=== PATIENT | male | born 1945 | race Caucasian/White ===

== ENCOUNTER 2021-07-23 08:37 | Day surgery (SDC) | payer OTHER ==
[~2021-07-23] VITALS: Ht 177.8 cm; Wt 77.2 kg
[~2021-07-23 08:37] MED LIST: ASPI-1264 PO; ATOR40TA PO; CHOL400C8 PO; HYDR12.5 PO; HYDR500C18 PO; IRON18TA PO; LEVO75TA PO; MELO-100 PO; OMEP20CA16 PO
[2021-07-23] MEDS ORDERED: normal saline 1000ml 1,000 ML IV SCH (09:00)
[2021-07-23] MEDS ORDERED: LISI10TA27 PO (09:44)
[2021-07-23] MEDS ORDERED: LEVO100T9 PO (09:44)
[2021-07-23] MEDS ORDERED: ATOR10TA87 PO (09:44)
== END 2021-07-23 09:55 | disposition home or self-care (01) ==
LOC: SSTAY O 08:37
PROVIDERS: ATTEND Radiology Vascular & Interventional Radiology
DX: D38.1 Neoplasm of uncertain behavior of trachea, bronchus and lung (principal); Z53.8 Procedure and treatment not carried out for other reasons; U07.1 COVID-19; Z20.822 Contact with and (suspected) exposure to COVID-19
CPT/HCPCS: 87635; C9803

== ENCOUNTER 2021-08-17 13:49 | Emergency (ER) | payer OTHER, MEDICARE, BC ==
[~2021-08-17] VITALS: Ht 177.8 cm; Wt 77.3 kg
[~2021-08-17 13:49] MED LIST changes: +ATOR10TA87 PO; -ATOR40TA PO; -CHOL400C8 PO; -HYDR12.5 PO; -IRON18TA PO; +LEVO100T9 PO; -LEVO75TA PO; +LISI10TA27 PO; -MELO-100 PO
[2021-08-17 15:30] LABS: BASOPHILS # (AUTO) 0.1 X10'3 (0-0.2); BASOPHILS % (AUTO) 1.3 % (0-1); EOSINOPHILS # (AUTO) 0.1 X10'3 (0-0.9); EOSINOPHILS % (AUTO) 1.3 % (0-6); HEMATOCRIT 34.2 % (42.0-52.0); HEMOGLOBIN 11.5 g/dl (14.0-17.9); LYMPHOCYTES % (AUTO) 14.4 % (21-51); MEAN CORPUSCULAR HEMOGLOBIN 35.4 PG (27.0-31.0); MEAN CORPUSCULAR HGB CONC 33.7 g/dL (33.0-36.5); MEAN CORPUSCULAR VOLUME 105.1 FL (78-98); MONOCYTES # (AUTO) 0.6 X10'3 (0-0.9); NEUTROPHILS # (AUTO) 5.5 X10'3 (1.8-7.7); PLATELET COUNT 465 X10'3 (140-440); RED BLOOD COUNT 3.25 X10'6 (4.70-6.10); RED CELL DISTRIBUTION WIDTH 17.7 % (11.5-14.5); WHITE BLOOD COUNT 7.3 X10'3 (4.5-11.0)
[2021-08-17 15:32] LABS: APTT 28 SECONDS (22-32)
[2021-08-17 15:36] LABS: ALANINE AMINOTRANSFERASE 22 U/L (12-78); ALBUMIN 3.1 G/DL (3.4-5.0); ALBUMIN/GLOBULIN RATIO 0.9 (1.1-1.5); ALKALINE PHOSPHATASE 78 IU/L (46-116); ANION GAP 10 (8-16); ASPARTATE AMINO TRANSFERASE 16 U/L (10-37); BILIRUBIN,TOTAL 0.3 MG/DL (0.1-1.0); BLOOD UREA NITROGEN 18 MG/DL (7-18); BUN/CREATININE RATIO 21.7 (5.4-32.0); CALCIUM 8.2 MG/DL (8.5-10.1); CHLORIDE 105 MMOL/L (99-107); CREATININE 0.83 MG/DL (0.60-1.10); GLUCOSE 117 MG/DL (70-104); POTASSIUM 4.4 MMOL/L (3.5-5.1); SODIUM 139 MMOL/L (135-145); TOTAL CARBON DIOXIDE 24.5 MMOL/L (24-32); TOTAL PROTEIN 6.7 G/DL (6.4-8.2); eGFR 90 ML/MIN
[2021-08-17] MEDS ORDERED: iohexol 350MG/ML 100ml bottle IV ONE (16:35)
[2021-08-17] MEDS ORDERED: iohexol 350 MG/ML 50ML vial IV ONE (16:35)
--- NOTE | 2021-08-17 16:48 | NUR ---
ultrasound at bedside.
--- NOTE | 2021-08-17 19:36 | NUR ---
Pt ambulatory to bathroom. Pt pink, alert, steady gait, no acute/resp distress.
[2021-08-17 20:32] VITALS: BP 149/98
== END 2021-08-17 20:40 | disposition home or self-care (01) ==
LOC: ER 13:50
DX: I99.8 Other disorder of circulatory system (principal); M79.674 Pain in right toe(s); Z98.890 Other specified postprocedural states; Z72.89 Other problems related to lifestyle; Z79.82 Long term (current) use of aspirin; Z79.899 Other long term (current) drug therapy
CPT/HCPCS: 36415; 75635; 80053; 85025; 85610; 85730; 93922; 93926; 99285; Q9967

== ENCOUNTER 2021-10-05 14:05 | Emergency (ER) | payer OTHER, MEDICARE, BC ==
[~2021-10-05] VITALS: Ht 177.8 cm; Wt 77.0 kg
[2021-10-05 15:19] LABS: COLOR,URINE RED (Yellow)
[2021-10-05 15:21] LABS: CLARITY,URINE CLOUDY (Clear); UA COLLECTION TYPE CLN CATCH MIDSTREAM
[2021-10-05 15:25] LABS: BACTERIA,URINE 1+ /HPF (Neg); MUCUS STRANDS NONE SEEN /LPF (Neg); RBC,URINE TNTC /HPF (0-2); SQUAMOUS EPITHELIAL CELL,UR FEW /LPF (FEW)
--- NOTE | 2021-10-05 16:15 | NUR ---
pt is resting quietly on [place], being evaluated by Dr Maldonado
[2021-10-05] MEDS ORDERED: normal saline 1000ML IV soln IVB ONE (16:20)
[2021-10-05 16:53] LABS: RED CELL DISTRIBUTION WIDTH 16.6 % (11.5-14.5)
[2021-10-05 16:55] LABS: BASOPHILS # (AUTO) 0.2 X10'3 (0-0.2); EOSINOPHILS # (AUTO) 0.2 X10'3 (0-0.9); EOSINOPHILS % (AUTO) 2.6 % (0-6); HEMATOCRIT 34.2 % (42.0-52.0); HEMOGLOBIN 11.4 g/dl (14.0-17.9); LYMPHOCYTES # (AUTO) 1.4 X10'3 (1.1-4.8); LYMPHOCYTES % (AUTO) 14.9 % (21-51); MEAN CORPUSCULAR HEMOGLOBIN 34.5 PG (27.0-31.0); MEAN CORPUSCULAR HGB CONC 33.4 g/dL (33.0-36.5); MEAN CORPUSCULAR VOLUME 103.4 FL (78-98); MEAN PLATELET VOLUME 7.9 FL (7.4-10.4); MONOCYTES # (AUTO) 0.9 X10'3 (0-0.9); NEUTROPHILS # (AUTO) 6.5 X10'3 (1.8-7.7); NEUTROPHILS % (AUTO) 70.5 % (42-75); PLATELET COUNT 812 X10'3 (140-440); RED BLOOD COUNT 3.31 X10'6 (4.70-6.10); WHITE BLOOD COUNT 9.3 X10'3 (4.5-11.0)
--- NOTE | 2021-10-05 16:58 | NUR ---
pt to CT
[2021-10-05 16:59] LABS: CLARITY,URINE CLEAR (Clear); GLUCOSE, URINE NEGATIVE (Neg); KETONES,URINE NEGATIVE (Neg); LEUKOCYTE ESTERASE ,URINE NEGATIVE (Neg); NITRITES, URINE NEGATIVE (Neg); OCCULT BLOOD,URINE MODERATE (Neg); PROTEIN,URINE NEGATIVE (Neg); UROBILINOGEN,URINE 0.2 E.U/dL (0.2-1.0)
[2021-10-05 17:02] LABS: UA COLLECTION TYPE CLN CATCH MIDSTREAM
[2021-10-05 17:04] LABS: COLOR,URINE YELLOW (Yellow); RBC,URINE 20-50 /HPF (0-2); WBC,URINE 0-4 /HPF (0-4)
[2021-10-05 17:05] LABS: BACTERIA,URINE NONE SEEN /HPF (Neg); MUCUS STRANDS NONE SEEN /LPF (Neg); SQUAMOUS EPITHELIAL CELL,UR NONE SEEN /LPF (FEW)
[2021-10-05 17:12] LABS: ALANINE AMINOTRANSFERASE 8 U/L (12-78); ALBUMIN 3.1 G/DL (3.4-5.0); ALBUMIN/GLOBULIN RATIO 0.8 (1.1-1.5); ALKALINE PHOSPHATASE 99 IU/L (46-116); ANION GAP 10 (8-16); ASPARTATE AMINO TRANSFERASE 14 U/L (10-37); BILIRUBIN,TOTAL 0.4 MG/DL (0.1-1.0); BLOOD UREA NITROGEN 15 MG/DL (7-18); BUN/CREATININE RATIO 15.8 (5.4-32.0); CALCIUM 8.2 MG/DL (8.5-10.1); CHLORIDE 103 MMOL/L (99-107); CREATININE 0.95 MG/DL (0.60-1.10); GLUCOSE 101 MG/DL (70-104); POTASSIUM 4.3 MMOL/L (3.5-5.1); SODIUM 137 MMOL/L (135-145); TOTAL CARBON DIOXIDE 23.9 MMOL/L (24-32); eGFR 77 ML/MIN
--- NOTE | 2021-10-05 18:00 | NUR ---
pt stated there was no blood in urine now
[2021-10-05 18:29] VITALS: BP 152/79
== END 2021-10-05 18:31 | disposition home or self-care (01) ==
LOC: ER 14:06
DX: R31.9 Hematuria, unspecified (principal); E06.9 Thyroiditis, unspecified; F17.200 Nicotine dependence, unspecified, uncomplicated; Z79.899 Other long term (current) drug therapy
CPT/HCPCS: 36415; 74176; 80053; 81001; 85025; 87088; 96360; 99284; J7030; 96361

== ENCOUNTER 2022-01-09 08:25 | Day surgery (SDC) | payer OTHER ==
[~2022-01-09] VITALS: Ht 177.8 cm; Wt 77.2 kg
[2022-01-09] VITALS (16 sets, daily range): BP systolic 109–142; BP diastolic 55–75
[2022-01-09] MEDS ORDERED: normal saline 1000ml 1,000 ML IV SCH (09:00)
[2022-01-09] MEDS ORDERED: FLUT16SP2 BOTHNARES (09:05)
[2022-01-09] MEDS ORDERED: ATOR40TA71 PO (09:05)
[2022-01-09] MEDS ORDERED: CARV-50 PO (09:05)
[2022-01-09] MEDS ORDERED: LOSA25TA96 PO (09:05)
[2022-01-09] MEDS ORDERED: RIVA10TA PO (09:05)
[2022-01-09] MEDS ORDERED: ANAG0.5C3 PO (09:05)
[2022-01-09] MEDS ORDERED: sodium chloride 0.45% 1,000 ML IV SCH (10:10)
[2022-01-09] MEDS ORDERED: midazolam 1 mg/ML 2ml injection ONE (10:15)
[2022-01-09] MEDS ORDERED: fentaNYL/PF 50MCG/1 ML 2ML syringe ONE (10:15)
[2022-01-09] MEDS ORDERED: LIDOcaine 1%/PF 5ML 10 MG/ML VIAL ONE (10:15)
== END 2022-01-09 14:05 | disposition home or self-care (01) ==
LOC: SSTAY O 08:25
PROVIDERS: ATTEND Radiology Diagnostic Radiology
DX: R91.1 Solitary pulmonary nodule (principal); C34.11 Malignant neoplasm of upper lobe, right bronchus or lung; I10 Essential (primary) hypertension; K21.9 Gastro-esophageal reflux disease without esophagitis; I73.9 Peripheral vascular disease, unspecified; Z98.890 Other specified postprocedural states; Z79.899 Other long term (current) drug therapy; Z80.3 Family history of malignant neoplasm of breast; Z80.9 Family history of malignant neoplasm, unspecified
CPT/HCPCS: 32408; 71045; 87811; J2250; J3490; J7030; 77012; 99152; 99153; A4615; J3010

== ENCOUNTER 2022-01-20 05:57 | Emergency (ER) | payer OTHER, MEDICARE, BC ==
[~2022-01-20] VITALS: Ht 177.8 cm; Wt 72.7 kg
[~2022-01-20 05:57] MED LIST changes: +ANAG0.5C3 PO; -ATOR10TA87 PO; +ATOR40TA71 PO; +CARV-50 PO; +FLUT16SP2 BOTHNARES; -HYDR500C18 PO; -LISI10TA27 PO; +LOSA25TA96 PO; +RIVA10TA PO
--- NOTE | 2022-01-20 06:45 | NUR ---
LABS WALKED OVER TO LAB
[2022-01-20 07:10] LABS: ALANINE AMINOTRANSFERASE 56 U/L (12-78); ALBUMIN 2.8 G/DL (3.4-5.0); ALBUMIN/GLOBULIN RATIO 0.8 (1.1-1.5); ALKALINE PHOSPHATASE 116 IU/L (46-116); ANION GAP 14 (8-16); ASPARTATE AMINO TRANSFERASE 19 U/L (10-37); BILIRUBIN,TOTAL 0.5 MG/DL (0.1-1.0); BLOOD UREA NITROGEN 13 MG/DL (7-18); BUN/CREATININE RATIO 14.1 (5.4-32.0); CALCIUM 8.1 MG/DL (8.5-10.1); CHLORIDE 105 MMOL/L (99-107); CREATININE 0.92 MG/DL (0.60-1.10); GLUCOSE 112 MG/DL (70-104); POTASSIUM 3.9 MMOL/L (3.5-5.1); SODIUM 143 MMOL/L (135-145); TOTAL CARBON DIOXIDE 24.4 MMOL/L (24-32); TOTAL PROTEIN 6.3 G/DL (6.4-8.2); eGFR 80 ML/MIN
[2022-01-20 07:12] LABS: BASOPHILS # (AUTO) 0.1 X10'3 (0-0.2); EOSINOPHILS # (AUTO) 0.2 X10'3 (0-0.9); HEMOGLOBIN 10.1 g/dl (14.0-17.9); WHITE BLOOD COUNT 13.1 X10'3 (4.5-11.0)
[2022-01-20 07:14] LABS: EOSINOPHILS % (AUTO) 1.8 % (0-6); HEMATOCRIT 31.6 % (42.0-52.0); LYMPHOCYTES % (AUTO) 7.7 % (21-51); MEAN CORPUSCULAR HEMOGLOBIN 27.9 PG (27.0-31.0); MEAN CORPUSCULAR HGB CONC 31.9 g/dL (33.0-36.5); MEAN CORPUSCULAR VOLUME 87.6 FL (78-98); MEAN PLATELET VOLUME 8.8 FL (7.4-10.4); MONOCYTES # (AUTO) 0.8 X10'3 (0-0.9); MONOCYTES % (AUTO) 5.9 % (2-12); NEUTROPHILS # (AUTO) 10.9 X10'3 (1.8-7.7); NEUTROPHILS % (AUTO) 83.6 % (42-75); PLATELET COUNT 686 X10'3 (140-440); RED BLOOD COUNT 3.61 X10'6 (4.70-6.10); RED CELL DISTRIBUTION WIDTH 24.5 % (11.5-14.5)
[2022-01-20] MEDS ORDERED: iohexol 350MG/ML 100ml bottle IV ONE (07:59)
[2022-01-20 10:20] LABS: TOTAL CELLS COUNTED 100
[2022-01-20 10:22] LABS: ANISOCYTOSIS 3+; PLATELET ESTIMATE INCREASED
[2022-01-20 10:23] LABS: ACANTHOCYTES FEW; BURR CELLS FEW; ELLIPTOCYTES 1+; MICROCYTOSIS 1+; SCHISTOCYTES FEW
[2022-01-20 10:24] LABS: LARGE PLATELETS FEW
[2022-01-20 11:39] VITALS: BP 141/65
[2022-01-25] MEDS ORDERED: RIVA2.5T PO (18:40)
[2022-01-26] MEDS ORDERED: AMOX-580 PO (09:13)
[2022-01-26] MEDS ORDERED: GUAI600T45 PO (09:13)
== END 2022-01-20 11:40 | disposition home or self-care (01) ==
LOC: ER 06:00
DX: R06.00 Dyspnea, unspecified (principal); R91.8 Other nonspecific abnormal finding of lung field; R91.1 Solitary pulmonary nodule; I10 Essential (primary) hypertension; K21.9 Gastro-esophageal reflux disease without esophagitis; Z98.890 Other specified postprocedural states
CPT/HCPCS: 36415; 71045; 71275; 80053; 83880; 84484; 85007; 85025; 93005; 99285; J3490; Q9967

== ENCOUNTER 2022-03-06 07:01 | Day surgery (SDC) | payer OTHER ==
[~2022-03-06] VITALS: Ht 177.8 cm; Wt 74.6 kg
[~2022-03-06 07:01] MED LIST changes: +FURO-150 PO; +GUAI600T45 PO; +POTA-192 PO; -RIVA10TA PO; +RIVA2.5T PO
[2022-03-06 07:25] VITALS: BP 126/64
[2022-03-06] MEDS ORDERED: albumin 25% 100mL bottle x 1 IV PRN (07:25)
[2022-03-06] MEDS ORDERED: FURO20TA4 PO (07:57)
[2022-03-06] MEDS ORDERED: POTA-206 PO (07:58)
[2022-03-06] MEDS ORDERED: LIDOcaine 1% 30ml preserv. free vial SQ STA (08:01)
[2022-03-06 09:00] VITALS: BP 118/68
[2022-03-06 09:15] VITALS: BP 114/75
[2022-03-06 09:30] VITALS: BP 112/73
[2022-03-06 09:45] VITALS: BP 114/57
== END 2022-03-06 09:45 | disposition home or self-care (01) ==
LOC: SSTAY O 07:01
PROVIDERS: ATTEND Radiology Diagnostic Radiology
DX: J90 Pleural effusion, not elsewhere classified (principal); I48.91 Unspecified atrial fibrillation; I10 Essential (primary) hypertension; K21.9 Gastro-esophageal reflux disease without esophagitis; Z87.11 Personal history of peptic ulcer disease; Z98.890 Other specified postprocedural states; Z90.49 Acquired absence of other specified parts of digestive tract; Z79.899 Other long term (current) drug therapy; Z72.89 Other problems related to lifestyle; Z85.118 Personal history of other malignant neoplasm of bronchus and lung
CPT/HCPCS: 32555; A6258

== ENCOUNTER 2022-03-28 12:02 | Emergency (ER) | payer OTHER, MEDICARE, BC ==
[~2022-03-28] VITALS: Ht 177.8 cm; Wt 70.5 kg
[~2022-03-28 12:02] MED LIST changes: -FURO-150 PO; +FURO20TA4 PO; -GUAI600T45 PO; -POTA-192 PO; +POTA-206 PO
[2022-03-28 12:49] LABS: BASOPHILS # (AUTO) 0.1 X10'3 (0-0.2); BASOPHILS % (AUTO) 0.7 % (0-1); EOSINOPHILS # (AUTO) 0.4 X10'3 (0-0.9); EOSINOPHILS % (AUTO) 3.4 % (0-6); HEMATOCRIT 29.4 % (42.0-52.0); HEMOGLOBIN 9.7 g/dl (14.0-17.9); LYMPHOCYTES # (AUTO) 0.7 X10'3 (1.1-4.8); LYMPHOCYTES % (AUTO) 6.3 % (21-51); MEAN CORPUSCULAR HEMOGLOBIN 29.5 PG (27.0-31.0); MEAN CORPUSCULAR VOLUME 89.4 FL (78-98); MEAN PLATELET VOLUME 9.1 FL (7.4-10.4); MONOCYTES # (AUTO) 0.5 X10'3 (0-0.9); MONOCYTES % (AUTO) 5.3 % (2-12); NEUTROPHILS # (AUTO) 8.8 X10'3 (1.8-7.7); NEUTROPHILS % (AUTO) 84.3 % (42-75); PLATELET COUNT 327 X10'3 (140-440); RED BLOOD COUNT 3.29 X10'6 (4.70-6.10); RED CELL DISTRIBUTION WIDTH 21.8 % (11.5-14.5); WHITE BLOOD COUNT 10.4 X10'3 (4.5-11.0)
[2022-03-28 13:03] LABS: ALANINE AMINOTRANSFERASE 21 U/L (12-78); ALBUMIN 2.5 G/DL (3.4-5.0); ALBUMIN/GLOBULIN RATIO 0.7 (1.1-1.5); ALKALINE PHOSPHATASE 149 IU/L (46-116); ANION GAP 7 (8-16); ASPARTATE AMINO TRANSFERASE 15 U/L (10-37); BILIRUBIN,TOTAL 0.7 MG/DL (0.1-1.0); BLOOD UREA NITROGEN 13 MG/DL (7-18); CALCIUM 8.1 MG/DL (8.5-10.1); CHLORIDE 101 MMOL/L (99-107); GLUCOSE 102 MG/DL (70-104); SODIUM 135 MMOL/L (135-145); TOTAL CARBON DIOXIDE 27.1 MMOL/L (24-32); TOTAL PROTEIN 6.2 G/DL (6.4-8.2); eGFR 72 ML/MIN
[2022-03-28 13:37] VITALS: BP 125/64
[2022-03-28 14:53] LABS: ANISOCYTOSIS 3+; PLATELET ESTIMATE NORMAL; TOTAL CELLS COUNTED 100
[2022-03-28 14:54] LABS: ACANTHOCYTES 2+; ELLIPTOCYTES 2+; GIANT PLATELET FEW; SCHISTOCYTES FEW; TEAR DROP CELLS FEW
[2022-03-28 14:55] LABS: BURR CELLS 1+; LARGE PLATELETS FEW
[2022-04-02] MEDS ORDERED: FERR240T15 PO (08:35)
[2022-04-02] MEDS ORDERED: ALBU17AE26 PO (14:30)
[2022-04-02] MEDS ORDERED: TIOT4MIS3 INH (14:30)
[2022-04-02] MEDS ORDERED: FURO40TA4 PO (14:49)
[2022-04-02] MEDS ORDERED: LOSA50TA64 PO (14:49)
[2022-04-02] MEDS ORDERED: CARV25TA2 PO (14:49)
[2022-04-02] MEDS ORDERED: ANAG0.5C3 PO (15:53)
[2022-04-02] MEDS ORDERED: ANAG1CAP3 PO (15:59)
[2022-04-02] MEDS ORDERED: RIVA10TA PO (15:59)
[2022-04-02] MEDS ORDERED: LEVO100T PO (15:59)
[2022-04-02] MEDS ORDERED: OMEP20TA43 PO (15:59)
[2022-04-02] MEDS ORDERED: ATOR40TA71 PO (15:59)
[2022-04-02] MEDS ORDERED: ASPI-100 PO (16:00)
[2022-04-02] MEDS ORDERED: FLUT16SP2 BOTHNARES (16:00)
[2022-04-02] MEDS ORDERED: FERR-39 PO (16:00)
== END 2022-03-28 13:37 | disposition home or self-care (01) ==
LOC: ER 12:03
DX: I11.0 Hypertensive heart disease with heart failure (principal); K21.9 Gastro-esophageal reflux disease without esophagitis; Z79.899 Other long term (current) drug therapy
CPT/HCPCS: 36415; 71045; 80053; 83880; 84484; 85007; 85025; 93005; 99285

== ENCOUNTER 2023-01-11 08:54 | Inpatient (IN) | payer OTHER, MEDICARE, BC ==
[~2023-01-11] VITALS: Ht 177.8 cm; Wt 78.6 kg
[~2023-01-11 08:54] MED LIST changes: +ALBU17AE26 PO; +AMIO200T67 PO; -ANAG0.5C3 PO; +ANAG1CAP3 PO; +ASPI-100 PO; -ASPI-1264 PO; -CARV-50 PO; +CARV3.12 PO; +DIGO250T4 PO; +FERR-39 PO; -FLUT16SP2 BOTHNARES; +LEVO100T PO; -LEVO100T9 PO; -LOSA25TA96 PO; +LOSA50TA64 PO; -OMEP20CA16 PO; +OMEP20TA43 PO; +RIVA10TA PO; -RIVA2.5T PO; +TIOT4MIS3 INH
[2023-01-11 09:39] LABS: BASOPHILS # (AUTO) 0.4 X10'3 (0-0.2); BASOPHILS % (AUTO) 1.9 % (0-1); EOSINOPHILS # (AUTO) 0.2 X10'3 (0-0.9); EOSINOPHILS % (AUTO) 0.8 % (0-6); HEMATOCRIT 28.9 % (42.0-52.0); HEMOGLOBIN 8.8 g/dl (14.0-17.9); LYMPHOCYTES # (AUTO) 0.9 X10'3 (1.1-4.8); LYMPHOCYTES % (AUTO) 4.2 % (21-51); MEAN CORPUSCULAR HEMOGLOBIN 28.6 PG (27.0-31.0); MEAN CORPUSCULAR HGB CONC 30.4 g/dL (33.0-36.5); MEAN CORPUSCULAR VOLUME 94.1 FL (78-98); MEAN PLATELET VOLUME 9.7 FL (7.4-10.4); NEUTROPHILS # (AUTO) 17.9 X10'3 (1.8-7.7); NEUTROPHILS % (AUTO) 88.1 % (42-75); PLATELET COUNT 378 X10'3 (140-440); RED BLOOD COUNT 3.07 X10'6 (4.70-6.10); RED CELL DISTRIBUTION WIDTH 24.8 % (11.5-14.5); WHITE BLOOD COUNT 20.3 X10'3 (4.5-11.0)
[2023-01-11 09:40] LABS: ALANINE AMINOTRANSFERASE 19 U/L (12-78); ALBUMIN 3.2 G/DL (3.4-5.0); ALKALINE PHOSPHATASE 136 IU/L (46-116); ANION GAP 11 (8-16); ASPARTATE AMINO TRANSFERASE 13 U/L (10-37); BILIRUBIN,TOTAL 0.6 MG/DL (0.1-1.0); BLOOD UREA NITROGEN 19 MG/DL (7-18); BUN/CREATININE RATIO 13.3 (10.0-20.0); CALCIUM 8.6 MG/DL (8.5-10.1); CHLORIDE 107 MMOL/L (99-107); CREATININE 1.43 MG/DL (0.60-1.10); GLUCOSE 109 MG/DL (70-104); POTASSIUM 4.5 MMOL/L (3.5-5.1); SODIUM 140 MMOL/L (135-145); TOTAL CARBON DIOXIDE 22.5 MMOL/L (24-32); TOTAL PROTEIN 6.5 G/DL (6.4-8.2); eCRCL 43 ML/MIN; eGFR 48 ML/MIN
[2023-01-11 09:47] LABS: PRO BRAIN NATRIURETIC PEPTIDE 12375 PG/ML (0-450)
[2023-01-11 10:23] LABS: PLATELET ESTIMATE NORMAL; TOTAL CELLS COUNTED 100
[2023-01-11 10:24] LABS: ANISOCYTOSIS 3+
[2023-01-11 10:28] LABS: LARGE PLATELETS MODERATE; TOXIC GRANULATION 1+
[2023-01-11 10:29] LABS: GIANT PLATELET FEW; POLYCHROMASIA 1+
[2023-01-11 10:30] LABS: ELLIPTOCYTES 2+; HYPOCHROMASIA 1+; SCHISTOCYTES 1+
[2023-01-11 10:33] LABS: ACANTHOCYTES FEW; TEAR DROP CELLS 1+
[2023-01-11] MEDS ORDERED: iohexol 350MG/ML 100ml bottle IV ONE (10:53)
--- NOTE | 2023-01-11 13:30 | NUR ---
BREAK RELIEF FOR LUNCH. PT A/OX4. ABLE TO MAKE HIS NEEDS KNOWN. PT ON [place] HOB ELEVATED. RR EVEN AND UNLABORED.
--- NOTE | 2023-01-11 14:56 | NUR ---
Family member left for the night, left numbers for update. Dada (son) Home # [phone]
[2023-01-11] MEDS ORDERED: azithromycin/NS 500mg/250ml 250 ML IV ONE (15:00)
[2023-01-11] MEDS ORDERED: CefTRIAXone 2gm/D5W 50ml BAG 50 ML IV ONE (15:00)
[2023-01-11] MEDS ORDERED: potassium Cl 20 mEq SR tablet PO PRN ×2 (16:25)
[2023-01-11] MEDS ORDERED: mag hydrox/Alum hydrox/simeth 30ml oral suspension PO PRN (16:25)
[2023-01-11] MEDS ORDERED: magnesium 2GM in 50ml NS 50 ML IV PRN (16:25)
[2023-01-11] MEDS ORDERED: magnesium hydroxide 30ml (MOM) UD suspension PO PRN (16:25)
[2023-01-11] MEDS ORDERED: potassium Cl 40MEQ/1/2NS 520ml 520 ML IV PRN (16:25)
[2023-01-11] MEDS ORDERED: acetaminophen 325mg tablet PO PRN (16:25)
[2023-01-11] MEDS ORDERED: magnesium 4gm in 100ml NS 100 ML IV PRN (16:25)
[2023-01-11] MEDS ORDERED: ondansetron/PF 4mg/2ml inj IV PRN (16:25)
[2023-01-11] MEDS ORDERED: magnesium Cl slow-release 64mg tablet PO PRN (16:25)
[2023-01-11] MEDS ORDERED: furosemide 10 MG/1 ML 10ml inj IV ONE (16:35)
[2023-01-11] MEDS ORDERED: albuterol 2.5 MG/3 ML nebule NEB PRN (16:35)
[2023-01-11 16:51] LABS: MAGNESIUM 2.2 MG/DL (1.5-2.4)
[2023-01-11] MEDS ORDERED: PERFLUTREN PROTEIN-A MICROSPHR (Optison) 0.22 MG/ML 3ML VIAL IV ONE (16:55)
--- NOTE | 2023-01-11 19:10 | NUR ---
PT ATE 1/4 OF DINNER. PT STATES HE "DOESNT EAT ALOT"
[2023-01-11] MEDS: docusate sod 100mg capsule PO SCH (19:27)
[2023-01-11] MEDS: K and/or MAG REPLACEMENT MC SCH (19:27)
[2023-01-11 19:31] VITALS: PULSE 75; RESP 16; O2SAT 96
[2023-01-11] MEDS: carVEDilol 3.125mg tablet PO SCH (20:00)
[2023-01-11] MEDS: rivaroxaban 10mg tablet PO SCH (20:00)
[2023-01-11] MEDS ORDERED: METO-539 PO (20:38)
[2023-01-11] MEDS ORDERED: VIT1CAPS46 PO (20:38)
[2023-01-11] MEDS ORDERED: SPIR25TA5 PO (20:38)
[2023-01-11] MEDS ORDERED: CYAN500T71 PO (20:38)
[2023-01-11] MEDS ORDERED: EMPA25TA PO (20:38)
[2023-01-11] MEDS ORDERED: MAGN400C PO (20:38)
--- NOTE | 2023-01-11 21:31 | NUR ---
PT PLACED ON HOSPITAL BED.
[2023-01-11] MEDS: temazepam 15mg capsule PO PRN (22:11)
[2023-01-12] VITALS (9 sets, daily range): BP systolic 110–128; BP diastolic 55–76; PULSE 58–77; RESP 13–25; TEMP 96.9–98.1; O2SAT 93–100
[2023-01-12 04:02] LABS: BASOPHILS # (AUTO) 0.3 X10'3 (0-0.2); BASOPHILS % (AUTO) 1.5 % (0-1); EOSINOPHILS # (AUTO) 0.2 X10'3 (0-0.9); EOSINOPHILS % (AUTO) 0.9 % (0-6); HEMATOCRIT 26.3 % (42.0-52.0); HEMOGLOBIN 8.3 g/dl (14.0-17.9); LYMPHOCYTES # (AUTO) 0.8 X10'3 (1.1-4.8); LYMPHOCYTES % (AUTO) 4.5 % (21-51); MEAN CORPUSCULAR HEMOGLOBIN 29.3 PG (27.0-31.0); MEAN CORPUSCULAR HGB CONC 31.7 g/dL (33.0-36.5); MEAN CORPUSCULAR VOLUME 92.5 FL (78-98); MEAN PLATELET VOLUME 9.8 FL (7.4-10.4); MONOCYTES # (AUTO) 0.7 X10'3 (0-0.9); MONOCYTES % (AUTO) 3.8 % (2-12); NEUTROPHILS # (AUTO) 15.4 X10'3 (1.8-7.7); NEUTROPHILS % (AUTO) 89.3 % (42-75); PLATELET COUNT 333 X10'3 (140-440); RED BLOOD COUNT 2.85 X10'6 (4.70-6.10); RED CELL DISTRIBUTION WIDTH 24.3 % (11.5-14.5); WHITE BLOOD COUNT 17.2 X10'3 (4.5-11.0)
[2023-01-12 04:05] LABS: ANION GAP 15 (8-16); BLOOD UREA NITROGEN 21 MG/DL (7-18); BUN/CREATININE RATIO 15.2 (10.0-20.0); CALCIUM 8.2 MG/DL (8.5-10.1); CHLORIDE 105 MMOL/L (99-107); CREATININE 1.38 MG/DL (0.60-1.10); GLUCOSE 92 MG/DL (70-104); MAGNESIUM 2.2 MG/DL (1.5-2.4); POTASSIUM 4.5 MMOL/L (3.5-5.1); SODIUM 141 MMOL/L (135-145); eCRCL 45 ML/MIN; eGFR 50 ML/MIN
[2023-01-12] MEDS ORDERED: AMIO100T4 PO (04:07)
[2023-01-12 08:11] LABS: ANISOCYTOSIS 3+; PLATELET ESTIMATE NORMAL; TOTAL CELLS COUNTED 100
[2023-01-12 08:12] LABS: ACANTHOCYTES FEW; ELLIPTOCYTES 2+; HYPOCHROMASIA 1+; POLYCHROMASIA 1+; SCHISTOCYTES 1+; TEAR DROP CELLS 1+
[2023-01-12] MEDS: CefTRIAXone/D5W-Rocephin 1gm 50 ML IV SCH (08:18)
[2023-01-12] MEDS: furosemide 10 MG/1 ML 10ml inj IV SCH (08:21)
[2023-01-12] MEDS: azithromycin 250mg tablet PO SCH (08:21)
[2023-01-12] MEDS: carVEDilol 3.125mg tablet PO SCH ×2 (08:21→20:59)
[2023-01-12] MEDS: rivaroxaban 10mg tablet PO SCH (08:22)
[2023-01-12] MEDS: docusate sod 100mg capsule PO SCH ×2 (08:22→20:59)
--- NOTE | 2023-01-12 08:45 | NUR ---
Received report from ER nurse Naty POWERS. Patient will be coming up on hospital bed with scheduled IV ABX running.
[2023-01-12] MEDS: K and/or MAG REPLACEMENT MC SCH ×2 (09:00→20:00)
--- NOTE | 2023-01-12 09:00 | NUR ---
Patient arrived to unit via hospital bed accompanied by staff. IV abx running per order. No complaints of pain or discomfort at this time. Call light is in reach.
[2023-01-12] MEDS ORDERED: EMPAGLIFLOZIN 25 MG TABLET PO SCH (10:50)
[2023-01-12 11:19] LABS: THYROID STIMULATING HORMONE 15.63 ulU/ml (0.34-4.50)
[2023-01-12] MEDS: amiodarone 100mg tablet PO SCH (11:51)
[2023-01-12] MEDS: metoprolol tartrate 12.5mg (1/2 tablet) PO SCH (11:51)
[2023-01-12] MEDS ORDERED: ANAGRELIDE 1 MG PO SCH (12:23)
--- NOTE | 2023-01-12 14:10 | NUR ---
AGREE WITH DIALS INSPECTOR AM ASSESSMENT EXCEPT WHERE ADDITIONS MADE
--- NOTE | 2023-01-12 18:20 | NUR ---
Problems reprioritized. Patient report given, questions answered & plan of care reviewed with Esther POWERS.
--- NOTE | 2023-01-12 18:35 | NUR ---
Patient in room PCU 3018. I have received report from Krystal POWERS and had the opportunity to ask questions and assume patient care.
[2023-01-12] MEDS ORDERED: non-formulary drug (Vit C/E/Zn/Coppr/Lutein/Zeaxan (Preservision Areds 2 Softgel) 1 CAP) PO SCH (20:00)
[2023-01-12] MEDS: temazepam 15mg capsule PO PRN (21:35)
[2023-01-13] VITALS (10 sets, daily range): BP systolic 100–144; BP diastolic 53–78; PULSE 62–73; RESP 14–24; TEMP 97.4–98.5; O2SAT 94–100
--- NOTE | 2023-01-13 06:30 | NUR ---
Patient in room PCU 3018. I have received report from Esther POWERS and had the opportunity to ask questions and assume patient care.
--- NOTE | 2023-01-13 06:55 | NUR ---
Problems reprioritized. Patient report given, questions answered & plan of care reviewed with Krystal POWERS.
[2023-01-13] MEDS: CefTRIAXone/D5W-Rocephin 1gm 50 ML IV SCH (07:37)
[2023-01-13] MEDS: furosemide 10 MG/1 ML 10ml inj IV SCH (07:38)
[2023-01-13 07:44] LABS: EOSINOPHILS # (AUTO) 0.2 X10'3 (0-0.9); HEMOGLOBIN 9.2 g/dl (14.0-17.9); MONOCYTES % (AUTO) 3.9 % (2-12)
[2023-01-13 07:46] LABS: BASOPHILS # (AUTO) 0.3 X10'3 (0-0.2); BASOPHILS % (AUTO) 1.6 % (0-1); EOSINOPHILS % (AUTO) 1.2 % (0-6); HEMATOCRIT 29.6 % (42.0-52.0); LYMPHOCYTES # (AUTO) 0.9 X10'3 (1.1-4.8); LYMPHOCYTES % (AUTO) 4.8 % (21-51); MEAN CORPUSCULAR HEMOGLOBIN 29.3 PG (27.0-31.0); MEAN CORPUSCULAR HGB CONC 31.1 g/dL (33.0-36.5); MEAN CORPUSCULAR VOLUME 94.2 FL (78-98); MEAN PLATELET VOLUME 8.3 FL (7.4-10.4); MONOCYTES # (AUTO) 0.7 X10'3 (0-0.9); NEUTROPHILS # (AUTO) 17.2 X10'3 (1.8-7.7); NEUTROPHILS % (AUTO) 88.5 % (42-75); PLATELET COUNT 320 X10'3 (140-440); RED BLOOD COUNT 3.15 X10'6 (4.70-6.10); RED CELL DISTRIBUTION WIDTH 24.9 % (11.5-14.5); WHITE BLOOD COUNT 19.5 X10'3 (4.5-11.0)
[2023-01-13] MEDS: K and/or MAG REPLACEMENT MC SCH ×2 (08:00→20:00)
[2023-01-13] MEDS ORDERED: rivaroxaban 20mg tablet PO SCH ×2 (08:00→18:00)
[2023-01-13] MEDS ORDERED: spironolactone 25 MG tablet PO SCH ×3 (08:00→11:40)
[2023-01-13] MEDS ORDERED: levoTHYROXINE 100mcg tablet PO SCH (08:00)
[2023-01-13] MEDS ORDERED: furosemide 20MG tablet PO SCH (08:00)
[2023-01-13 08:33] LABS: % IRON SATURATION 16 % (11-46); IRON 52 UG/DL (53-167); TOTAL IRON BINDING CAPACITY 326 UG/DL (259-388)
[2023-01-13 08:53] LABS: ALBUMIN 3.3 G/DL (3.4-5.0); ANION GAP 13 (8-16); BLOOD UREA NITROGEN 25 MG/DL (7-18); BUN/CREATININE RATIO 16.1 (10.0-20.0); CALCIUM 8.2 MG/DL (8.5-10.1); CHLORIDE 102 MMOL/L (99-107); CREATININE 1.55 MG/DL (0.60-1.10); GLUCOSE 96 MG/DL (70-104); MAGNESIUM 2.4 MG/DL (1.5-2.4); POTASSIUM 4.4 MMOL/L (3.5-5.1); SODIUM 136 MMOL/L (135-145); TOTAL CARBON DIOXIDE 20.6 MMOL/L (24-32); eCRCL 40 ML/MIN; eGFR 43 ML/MIN
[2023-01-13 08:58] LABS: FERRITIN 76 NG/ML (26-388)
[2023-01-13] MEDS: azithromycin 250mg tablet PO SCH (09:42)
[2023-01-13] MEDS: levoTHYROXINE 125mcg tablet PO SCH (09:42)
[2023-01-13] MEDS: cyanocobalamin 500mcg tablet PO SCH (09:42)
[2023-01-13] MEDS: docusate sod 100mg capsule PO SCH ×2 (09:43→20:54)
[2023-01-13] MEDS: pantoprazole 40mg Tablet.DR PO SCH (09:43)
[2023-01-13] MEDS: atorvastatin 20mg tablet PO SCH (09:43)
[2023-01-13] MEDS: metoprolol tartrate 12.5mg (1/2 tablet) PO SCH (09:43)
[2023-01-13] MEDS: ferrous sulfate 325mg tablet PO SCH (09:44)
[2023-01-13] MEDS: carVEDilol 3.125mg tablet PO SCH (09:44)
[2023-01-13] MEDS: amiodarone 100mg tablet PO SCH (09:44)
--- NOTE | 2023-01-13 10:02 | NUR ---
Spoke with Dr Pinedo resident working with Dr Kelly about PO and IV Lasix order. gave order to DC PO and keep the IV Lasix.
[2023-01-13] MEDS ORDERED: EMPAGLIFLOZIN 25 MG TABLET PO SCH (10:04)
[2023-01-13] MEDS ORDERED: ANAGRELIDE 1 MG PO SCH ×3 (10:06→13:00)
[2023-01-13] MEDS: magnesium oxide 400mg tablet PO SCH (11:58)
[2023-01-13] MEDS: EMPAGLIFLOZIN 25 MG TABLET PO SCH (11:59)
[2023-01-13 12:14] LABS: ANISOCYTOSIS 3+; ELLIPTOCYTES 2+; HYPOCHROMASIA 1+; PLATELET ESTIMATE NORMAL; SCHISTOCYTES 1+; TEAR DROP CELLS 1+; TOTAL CELLS COUNTED 100
--- NOTE | 2023-01-13 13:17 | NUR ---
Patient's daughter came and asked nursing if the patient can get a breathing Tx. Paged RT for PRN.
--- NOTE | 2023-01-13 14:20 | NUR ---
Spoke with Dr Kelly about patient being on Eliquis 5 mg instead of Xarelto. okayed swapping medications
--- NOTE | 2023-01-13 18:32 | NUR ---
Problems reprioritized. Patient report given, questions answered & plan of care reviewed with Esther POWERS.
--- NOTE | 2023-01-13 18:35 | NUR ---
Patient in room PCU 3018. I have received report from Krystal Rice and had the opportunity to ask questions and assume patient care.
[2023-01-13] MEDS: sacubitril/valsartan 24mg-26mg tablet PO SCH (20:55)
[2023-01-13] MEDS: ANAGRELIDE 1 MG PO SCH (20:55)
[2023-01-13] MEDS: apixaban 5mg tablet PO SCH (20:55)
[2023-01-14] VITALS (9 sets, daily range): BP systolic 86–115; BP diastolic 38–69; PULSE 62–95; RESP 13–20; TEMP 97.4–97.6; O2SAT 95–98
[2023-01-14] MEDS: temazepam 15mg capsule PO PRN (01:20)
[2023-01-14 06:13] LABS: BASOPHILS # (AUTO) 0.3 X10'3 (0-0.2); EOSINOPHILS # (AUTO) 0.2 X10'3 (0-0.9); EOSINOPHILS % (AUTO) 1.2 % (0-6); HEMATOCRIT 29.2 % (42.0-52.0); LYMPHOCYTES # (AUTO) 0.7 X10'3 (1.1-4.8); LYMPHOCYTES % (AUTO) 3.8 % (21-51); MEAN CORPUSCULAR HEMOGLOBIN 29.3 PG (27.0-31.0); MEAN CORPUSCULAR HGB CONC 30.9 g/dL (33.0-36.5); MEAN CORPUSCULAR VOLUME 94.8 FL (78-98); MEAN PLATELET VOLUME 9.6 FL (7.4-10.4); MONOCYTES # (AUTO) 0.9 X10'3 (0-0.9); NEUTROPHILS # (AUTO) 15.3 X10'3 (1.8-7.7); PLATELET COUNT 412 X10'3 (140-440); RED BLOOD COUNT 3.08 X10'6 (4.70-6.10); RED CELL DISTRIBUTION WIDTH 24.5 % (11.5-14.5); WHITE BLOOD COUNT 17.4 X10'3 (4.5-11.0)
[2023-01-14 06:25] LABS: ALBUMIN 2.6 G/DL (3.4-5.0); ANION GAP 13 (8-16); BLOOD UREA NITROGEN 23 MG/DL (7-18); BUN/CREATININE RATIO 17.6 (10.0-20.0); CHLORIDE 105 MMOL/L (99-107); CREATININE 1.31 MG/DL (0.60-1.10); GLUCOSE 94 MG/DL (70-104); MAGNESIUM 2.4 MG/DL (1.5-2.4); POTASSIUM 3.9 MMOL/L (3.5-5.1); SODIUM 138 MMOL/L (135-145); TOTAL CARBON DIOXIDE 20.5 MMOL/L (24-32); eCRCL 47 ML/MIN; eGFR 53 ML/MIN
--- NOTE | 2023-01-14 06:40 | NUR ---
Problems reprioritized. Patient report given, questions answered & plan of care reviewed with Krystal HEDRICK.
--- NOTE | 2023-01-14 06:45 | NUR ---
Patient in room PCU 3018. I have received report from Esther POWERS and had the opportunity to ask questions and assume patient care.
[2023-01-14] MEDS: CefTRIAXone/D5W-Rocephin 1gm 50 ML IV SCH (07:26)
[2023-01-14] MEDS: furosemide 10 MG/1 ML 10ml inj IV SCH (07:27)
[2023-01-14 07:30] LABS: ANISOCYTOSIS 3+; PLATELET ESTIMATE NORMAL; TOTAL CELLS COUNTED 100
[2023-01-14 07:31] LABS: ELLIPTOCYTES 2+; HYPOCHROMASIA 1+
[2023-01-14 07:33] LABS: BURR CELLS 1+
[2023-01-14 07:34] LABS: SCHISTOCYTES FEW; TEAR DROP CELLS FEW
[2023-01-14] MEDS ORDERED: metoprolol succinate 25mg (24-HOUR) SR. Tablet PO SCH (08:00)
[2023-01-14] MEDS: K and/or MAG REPLACEMENT MC SCH (08:00)
[2023-01-14] MEDS: docusate sod 100mg capsule PO SCH (08:08)
[2023-01-14] MEDS: levoTHYROXINE 125mcg tablet PO SCH (08:08)
[2023-01-14] MEDS: ferrous sulfate 325mg tablet PO SCH (08:08)
[2023-01-14] MEDS: EMPAGLIFLOZIN 25 MG TABLET PO SCH (08:08)
[2023-01-14] MEDS: azithromycin 250mg tablet PO SCH (08:08)
[2023-01-14] MEDS: ANAGRELIDE 1 MG PO SCH (08:08)
[2023-01-14] MEDS: magnesium oxide 400mg tablet PO SCH (08:08)
[2023-01-14] MEDS: cyanocobalamin 500mcg tablet PO SCH (08:08)
[2023-01-14] MEDS: pantoprazole 40mg Tablet.DR PO SCH (08:09)
[2023-01-14] MEDS: sacubitril/valsartan 24mg-26mg tablet PO SCH (08:09)
[2023-01-14] MEDS: apixaban 5mg tablet PO SCH (08:09)
[2023-01-14] MEDS: amiodarone 100mg tablet PO SCH (08:09)
[2023-01-14] MEDS: atorvastatin 20mg tablet PO SCH (08:09)
[2023-01-14] MEDS: spironolactone 25 MG tablet PO SCH ×2 (08:17→09:27)
--- NOTE | 2023-01-14 09:58 | NUR ---
Initial: Pt presented with c/o SOB and admit for bilateral pleural effusions. Pt on a regular diet and eating well, documented with average 85% PO intake meeting estimated nutrient needs. LBM 01/13 per EMR, pt receiving routine bowel care. No nutrition intervention implemented at this time. Will continue to follow and make recommendations as appropriate. Recommendations: 1) Continue regular diet 2) Routine bowel care 3) Daily scaled weights per rx Addendum: 01/14/23 at [address] Amended: Links added.
--- NOTE | 2023-01-14 10:27 | NUR ---
Spoke with Resident about patient's pressures being decreased. MD gave order to start NS @ 100 mL/hr.
[2023-01-14] MEDS ORDERED: normal saline 1000ml 1,000 ML IV SCH (10:30)
--- NOTE | 2023-01-14 12:48 | NUR ---
[facility] REPORT DEVELOPER documentation: I have reviewed and agree with all interventions, assessments performed and documented by JANETTE HEDRICK
[2023-01-14] MEDS ORDERED: APIX5TAB3 PO (15:29)
[2023-01-14] MEDS ORDERED: CEFD300C3 PO (15:29)
[2023-01-14] MEDS ORDERED: BUDE10.2 INH (15:29)
[2023-01-14] MEDS ORDERED: METO-395 PO (15:29)
[2023-01-14] MEDS ORDERED: SACU1TAB PO (15:29)
[2023-01-14] MEDS ORDERED: FURO-149 PO (15:29)
[2023-01-14] MEDS ORDERED: ALBU8HFA PO (15:29)
--- NOTE | 2023-01-14 17:50 | NUR ---
Patient discharged home with all belongings and discharge instructions. IV removed and tele monitor removed and returned to telecommunication lines repairer. Escorted out via wheel chair and left in private vehicle.
== END 2023-01-14 17:47 | disposition home health service (06) | DRG 193 ==
LOC: ER 08:54 → ED HOLD 16:31 → PCU 3S 01-12 09:00
PROVIDERS: ADMIT Internal Medicine; ATTEND Internal Medicine
PROC: B32T1ZZ Computerized Tomography (CT Scan) of Left Pulmonary Artery using Low Osmolar Contrast (ICD-10-PCS; principal; 2023-01-11)
PROC: B3201ZZ Computerized Tomography (CT Scan) of Thoracic Aorta using Low Osmolar Contrast (ICD-10-PCS; 2023-01-11)
PROC: B32S1ZZ Computerized Tomography (CT Scan) of Right Pulmonary Artery using Low Osmolar Contrast (ICD-10-PCS; 2023-01-11)
DX: J18.9 Pneumonia, unspecified organism (principal); I50.43 Acute on chronic combined systolic (congestive) and diastolic (congestive) heart failure; I11.0 Hypertensive heart disease with heart failure; I73.9 Peripheral vascular disease, unspecified; I48.0 Paroxysmal atrial fibrillation; K21.9 Gastro-esophageal reflux disease without esophagitis; D72.829 Elevated white blood cell count, unspecified; Z66 Do not resuscitate; Z20.822 Contact with and (suspected) exposure to COVID-19; E03.9 Hypothyroidism, unspecified; Z85.118 Personal history of other malignant neoplasm of bronchus and lung; Z87.891 Personal history of nicotine dependence; Z79.82 Long term (current) use of aspirin; Z79.01 Long term (current) use of anticoagulants; Z79.899 Other long term (current) drug therapy; Z90.49 Acquired absence of other specified parts of digestive tract; Z87.11 Personal history of peptic ulcer disease; Z85.51 Personal history of malignant neoplasm of bladder
CPT/HCPCS: 36415; 71045; 71275; 80048; 80053; 82607; 82728; 83540; 83550; 83605; 83735; 83880; 84145; 84443; 84484; 85007; 85025; 87040; 87081; 87811; 93005; 93306; 93970; 94760; 97161; 97530; 99285; A6250; G0378; J0456; J0696; J1940; J3490; J7030; J7040; Q9967

== ENCOUNTER 2023-02-17 10:53 | Day surgery (SDC) | payer MEDICARE, BC ==
[2023-02-10 12:44] LABS: ALBUMIN 3.6 G/DL (3.4-5.0); ANION GAP 8 (8-16); BLOOD UREA NITROGEN 28 MG/DL (7-18); BUN/CREATININE RATIO 19.4 (10.0-20.0); CALCIUM 8.2 MG/DL (8.5-10.1); CHLORIDE 107 MMOL/L (99-107); CREATININE 1.44 MG/DL (0.60-1.10); GLUCOSE 103 MG/DL (70-104); POTASSIUM 4.2 MMOL/L (3.5-5.1); SODIUM 140 MMOL/L (135-145); TOTAL CARBON DIOXIDE 24.9 MMOL/L (24-32); eGFR 47 ML/MIN
[2023-02-10 12:45] LABS: BASOPHILS # (AUTO) 0.3 X10'3 (0-0.2); BASOPHILS % (AUTO) 1.5 % (0-1); EOSINOPHILS # (AUTO) 0.1 X10'3 (0-0.9); EOSINOPHILS % (AUTO) 0.8 % (0-6); HEMATOCRIT 32.7 % (42.0-52.0); HEMOGLOBIN 10.4 g/dl (14.0-17.9); LYMPHOCYTES # (AUTO) 0.8 X10'3 (1.1-4.8); LYMPHOCYTES % (AUTO) 4.5 % (21-51); MEAN CORPUSCULAR HEMOGLOBIN 29.9 PG (27.0-31.0); MEAN CORPUSCULAR HGB CONC 31.8 g/dL (33.0-36.5); MEAN CORPUSCULAR VOLUME 94.2 FL (78-98); MONOCYTES # (AUTO) 0.7 X10'3 (0-0.9); MONOCYTES % (AUTO) 4.1 % (2-12); NEUTROPHILS # (AUTO) 15.5 X10'3 (1.8-7.7); NEUTROPHILS % (AUTO) 89.1 % (42-75); PLATELET COUNT 504 X10'3 (140-440); RED BLOOD COUNT 3.48 X10'6 (4.70-6.10); RED CELL DISTRIBUTION WIDTH 22.6 % (11.5-14.5); WHITE BLOOD COUNT 17.4 X10'3 (4.5-11.0)
[2023-02-10 13:52] LABS: ANISOCYTOSIS 3+; PLATELET ESTIMATE INCREASED; POIKILOCYTOSIS 1+; TOTAL CELLS COUNTED 100
[2023-02-10 13:53] LABS: BURR CELLS 1+; ELLIPTOCYTES 2+; SCHISTOCYTES FEW
[2023-02-10 13:54] LABS: POLYCHROMASIA FEW
[2023-02-10 13:55] LABS: TEAR DROP CELLS FEW
[~2023-02-17] VITALS: Ht 177.8 cm; Wt 71.2 kg
[2023-02-17] VITALS (10 sets, daily range): BP systolic 76–115; BP diastolic 31–56; PULSE 54–60; RESP 12–16; TEMP 97.5; O2SAT 95–98
[~2023-02-17 10:53] MED LIST changes: -ALBU17AE26 PO; +AMIO100T4 PO; -AMIO200T67 PO; +APIX5TAB3 PO; -ASPI-100 PO; +BUDE10.2 INH; -CARV3.12 PO; +CYAN500T71 PO; -DIGO250T4 PO; +EMPA25TA PO; +FURO-149 PO; -FURO20TA4 PO; -LOSA50TA64 PO; +MAGN400C PO; +METO-395 PO; -POTA-206 PO; -RIVA10TA PO; +SACU1TAB PO; +SPIR25TA5 PO; -TIOT4MIS3 INH; +VIT1CAPS46 PO
[2023-02-17] MEDS ORDERED: LORazepam 0.5 MG tablet PO PRN (11:10)
[2023-02-17] MEDS ORDERED: normal saline 1,000 ML IV SCH (11:10)
[2023-02-17] MEDS ORDERED: METO-395 PO (11:30)
[2023-02-17] MEDS ORDERED: FURO-149 PO (11:30)
[2023-02-17] MEDS ORDERED: POTA-207 PO (11:30)
[2023-02-17] MEDS ORDERED: APIX5TAB3 PO (11:30)
[2023-02-17] MEDS ORDERED: fentaNYL/PF 50MCG/1 ML 2ML syringe ONE (12:47)
[2023-02-17] MEDS ORDERED: LIDOcaine 1% (10mg/ml)w/preservative inj. 20ml MDV ONE (12:47)
[2023-02-17] MEDS ORDERED: midazolam 1 mg/ML 2ml injection ONE (12:47)
[2023-02-17] MEDS ORDERED: iohexol 350 MG/ML 50ML vial IV ONE (12:47)
[2023-02-17] MEDS ORDERED: HYDROcodone/acetaminophen 5mg/325mg tablet PO PRN (14:55)
[2023-02-17] MEDS ORDERED: HYDROcodone/acetaminophen 10/325mg tab PO PRN (14:55)
[2023-02-17] MEDS ORDERED: SACU1TAB PO (16:28)
[2023-02-18 06:48] LABS: ISTAT HGB MIX 10.2 g/dl (14.0-17.9); ISTAT Hct MIX 30 %PCV (42-52); ISTAT O2 SATURATION MIX VENOUS 53 % (60-80); ISTAT SOURCE VEN
== END 2023-02-17 16:35 | disposition home or self-care (01) ==
LOC: SSTAY O 10:53
PROVIDERS: ATTEND Student in an Organized Health Care Education/Training Program
DX: I11.0 Hypertensive heart disease with heart failure (principal); I50.22 Chronic systolic (congestive) heart failure; E78.5 Hyperlipidemia, unspecified; I48.91 Unspecified atrial fibrillation; J44.9 Chronic obstructive pulmonary disease, unspecified; I73.9 Peripheral vascular disease, unspecified; Z79.899 Other long term (current) drug therapy; Z79.01 Long term (current) use of anticoagulants
CPT/HCPCS: 33289; 36415; 80048; 82803; 85014; 85025; 93005; 99152; A6258; C2624; J1644; J2250; J3010; J3490; J7030; Q9967; 85007; 99153; A6402; C1751; C1769; C1892; C1894

== ENCOUNTER 2023-10-11 07:34 | Emergency (ER) | payer MEDICARE, BC ==
[~2023-10-11] VITALS: Ht 177.8 cm; Wt 72.7 kg
[~2023-10-11 07:34] MED LIST changes: +ANAG1CAP10 PO; -ANAG1CAP3 PO; -BUDE10.2 INH; +POTA-207 PO; -VIT1CAPS46 PO
[2023-10-11 07:35] VITALS: TEMP 97.8
[2023-10-11 08:24] LABS: BASOPHILS # (AUTO) 0.1 X10'3 (0-0.2); BASOPHILS % (AUTO) 1.1 % (0-1); EOSINOPHILS # (AUTO) 0.1 X10'3 (0-0.9); EOSINOPHILS % (AUTO) 0.6 % (0-6); HEMATOCRIT 30.2 % (42.0-52.0); LYMPHOCYTES # (AUTO) 0.4 X10'3 (1.1-4.8); LYMPHOCYTES % (AUTO) 3.8 % (21-51); MEAN CORPUSCULAR HEMOGLOBIN 30.9 PG (27.0-31.0); MEAN CORPUSCULAR VOLUME 93.6 FL (78-98); MEAN PLATELET VOLUME 7.8 FL (7.4-10.4); MONOCYTES # (AUTO) 0.7 X10'3 (0-0.9); MONOCYTES % (AUTO) 6.2 % (2-12); NEUTROPHILS # (AUTO) 9.7 X10'3 (1.8-7.7); NEUTROPHILS % (AUTO) 88.3 % (42-75); PLATELET COUNT 178 X10'3 (140-440); RED BLOOD COUNT 3.23 X10'6 (4.70-6.10); RED CELL DISTRIBUTION WIDTH 20.2 % (11.5-14.5)
[2023-10-11 08:33] LABS: ALBUMIN 3.3 G/DL (3.4-5.0); ANION GAP 10 (8-16); BLOOD UREA NITROGEN 25 MG/DL (7-18); BUN/CREATININE RATIO 15.8 (10.0-20.0); CALCIUM 8.1 MG/DL (8.5-10.1); CHLORIDE 105 MMOL/L (99-107); CREATININE 1.58 MG/DL (0.60-1.10); GLUCOSE 108 MG/DL (70-104); POTASSIUM 4.8 MMOL/L (3.5-5.1); SODIUM 136 MMOL/L (135-145); TOTAL CARBON DIOXIDE 21.5 MMOL/L (24-32); eCRCL 38 ML/MIN; eGFR 42 ML/MIN
[2023-10-11 08:49] LABS: STREP A SCREEN NEGATIVE (Neg)
[2023-10-11] MEDS ORDERED: NIRM1TAB9 PO (09:10)
[2023-10-11 09:16] LABS: TOTAL CELLS COUNTED 100
[2023-10-11 09:18] LABS: PLATELET ESTIMATE NORMAL
[2023-10-11 09:19] LABS: BURR CELLS FEW; POLYCHROMASIA FEW; SCHISTOCYTES FEW; TEAR DROP CELLS FEW
[2023-10-11 09:20] LABS: ELLIPTOCYTES 3+
[2023-10-11 09:22] LABS: ACANTHOCYTES FEW
[2023-10-11 10:09] VITALS: BP 106/53; PULSE 78; RESP 13; O2SAT 97
== END 2023-10-11 10:10 | disposition home or self-care (01) ==
LOC: ER 07:35
DX: U07.1 COVID-19 (principal); I50.9 Heart failure, unspecified; I11.0 Hypertensive heart disease with heart failure; K21.9 Gastro-esophageal reflux disease without esophagitis; Z79.899 Other long term (current) drug therapy; Z79.2 Long term (current) use of antibiotics
CPT/HCPCS: 36415; 71045; 80048; 85007; 85025; 87081; 87811; 87880; 99284

== ENCOUNTER 2023-12-03 11:43 | Emergency (ER) | payer MEDICARE, BC ==
[~2023-12-03] VITALS: Ht 177.8 cm; Wt 71.8 kg
[~2023-12-03 11:43] MED LIST changes: +NIRM1TAB9 PO
[2023-12-03] MEDS: ondansetron 4mg rapidly disintigrating tab PO ONE (12:48)
[2023-12-03] MEDS: morphine 10mg/ml inj. IM ONE (12:49)
[2023-12-03] MEDS ORDERED: HYDR-3965 PO (15:10)
[2023-12-03 15:20] VITALS: BP 111/67; PULSE 62; RESP 17; TEMP 98.1; O2SAT 96
== END 2023-12-03 15:21 | disposition home or self-care (01) ==
LOC: ER 11:44
DX: N43.3 Hydrocele, unspecified (principal); I11.0 Hypertensive heart disease with heart failure; I50.9 Heart failure, unspecified; K21.9 Gastro-esophageal reflux disease without esophagitis; Z79.899 Other long term (current) drug therapy
CPT/HCPCS: 76870; 93976; 96372; 99285; J2270; J2274

== ENCOUNTER 2024-01-10 23:21 | Emergency (ER) | payer OTHER, MEDICARE, BC ==
[~2024-01-10] VITALS: Ht 177.8 cm; Wt 72.5 kg
[2024-01-11] MEDS ORDERED: CARV3.12 PO (00:21)
[2024-01-11] MEDS ORDERED: CEPH-585 PO (00:57)
[2024-01-11 01:01] VITALS: BP 112/59; PULSE 78; RESP 15; O2SAT 99
[2024-01-11 01:03] VITALS: TEMP 98.2
[2024-01-11] MEDS: cephalexin 250mg capsule PO ONE (01:14)
== END 2024-01-11 01:15 | disposition home or self-care (01) ==
LOC: ER 23:22
DX: S51.811A Laceration without foreign body of right forearm, initial encounter (principal); I48.91 Unspecified atrial fibrillation; I11.0 Hypertensive heart disease with heart failure; I50.9 Heart failure, unspecified; K21.9 Gastro-esophageal reflux disease without esophagitis; F17.210 Nicotine dependence, cigarettes, uncomplicated; Z79.899 Other long term (current) drug therapy; Z79.2 Long term (current) use of antibiotics; Z90.49 Acquired absence of other specified parts of digestive tract; W19.XXXA Unspecified fall, initial encounter; Y93.89 Activity, other specified; Y92.89 Other specified places as the place of occurrence of the external cause; Y99.8 Other external cause status
CPT/HCPCS: 12004; 99284

== ENCOUNTER 2024-05-27 12:34 | Emergency (ER) | payer OTHER, MEDICARE, BC ==
[~2024-05-27] VITALS: Ht 177.8 cm; Wt 75.0 kg
[~2024-05-27 12:34] MED LIST changes: +CARV3.12 PO; +CEPH-585 PO; -METO-395 PO
[2024-05-27 15:49] LABS: BILIRUBIN,URINE NEGATIVE (Neg); CLARITY,URINE SLIGHTLY CLOUDY (Clear); COLOR,URINE YELLOW (Yellow); GLUCOSE, URINE >=1000 mg/dl (Neg); KETONES,URINE NEGATIVE (Neg); LEUKOCYTE ESTERASE ,URINE TRACE (Neg); NITRITES, URINE POSITIVE (Neg); OCCULT BLOOD,URINE NEGATIVE (Neg); PROTEIN,URINE NEGATIVE (Neg); UROBILINOGEN,URINE 0.2 E.U/dL (0.2-1.0)
[2024-05-27 15:51] LABS: UA COLLECTION TYPE CLN CATCH MIDSTREAM
[2024-05-27 15:58] LABS: BACTERIA,URINE 4+ /HPF (Neg); MUCUS STRANDS NONE SEEN /LPF (Neg); RBC,URINE NONE SEEN /HPF (0-2); SQUAMOUS EPITHELIAL CELL,UR NONE SEEN /LPF (FEW); WBC CLUMPS,URINE MODERATE /HPF (NEGATIVE); WBC,URINE 50-100 /HPF (0-4)
[2024-05-27] MEDS: LIDOcaine 1% 30ml preserv. free vial IJ ONE (16:29)
[2024-05-27] MEDS ORDERED: CEPH-585 PO (16:53)
[2024-05-27] MEDS ORDERED: SULF1TAB49 PO (16:53)
[2024-05-27 17:02] VITALS: BP 120/68; PULSE 68; RESP 15; TEMP 98.2; O2SAT 99
[2024-05-27] MEDS: CefTRIAXone 1000mg IM Kit (w/lidocaine diluent) IM ONE (17:11)
== END 2024-05-27 17:16 | disposition home or self-care (01) ==
LOC: ER 12:35
DX: N45.3 Epididymo-orchitis (principal); N39.0 Urinary tract infection, site not specified; I11.0 Hypertensive heart disease with heart failure; I50.9 Heart failure, unspecified; I48.91 Unspecified atrial fibrillation; K21.9 Gastro-esophageal reflux disease without esophagitis; E07.9 Disorder of thyroid, unspecified; Z90.49 Acquired absence of other specified parts of digestive tract; Z79.899 Other long term (current) drug therapy
CPT/HCPCS: 55100; 76870; 81001; 87070; 87088; 87186; 93976; 96372; 99285; A6407; J0696; 87077; A6449

== ENCOUNTER 2024-05-30 09:28 | Emergency (ER) | payer OTHER, MEDICARE, BC ==
[~2024-05-30] VITALS: Ht 177.8 cm; Wt 75.2 kg
[~2024-05-30 09:28] MED LIST changes: +SULF1TAB49 PO
[2024-05-30 09:57] VITALS: BP 138/73; PULSE 53; RESP 16; O2SAT 100
== END 2024-05-30 10:45 | disposition home or self-care (01) ==
LOC: ER 09:29
DX: Z48.817 Encounter for surgical aftercare following surgery on the skin and subcutaneous tissue (principal); N39.0 Urinary tract infection, site not specified; B95.2 Enterococcus as the cause of diseases classified elsewhere; I11.0 Hypertensive heart disease with heart failure; I50.9 Heart failure, unspecified; I48.91 Unspecified atrial fibrillation; K21.9 Gastro-esophageal reflux disease without esophagitis; Z88.1 Allergy status to other antibiotic agents; Z90.49 Acquired absence of other specified parts of digestive tract; Z98.890 Other specified postprocedural states
CPT/HCPCS: 99281; A6449

== ENCOUNTER 2025-01-27 11:50 | Emergency (ER) | payer OTHER, MEDICARE, BC ==
[~2025-01-27] VITALS: Ht 177.8 cm; Wt 77.1 kg
[~2025-01-27 11:50] MED LIST changes: -CEPH-585 PO; +NIRM1TAB13 PO; -NIRM1TAB9 PO; -SULF1TAB49 PO
--- NOTE | 2025-01-27 12:03 | ELECTROCARDIOGRAPH REPORT ---
[facility] Test Date: 2025-01-27 Test Time: 11:53:08 Pat Name: RODOLFO MONTOYA Department: EMERGENCY ROOM [id number] Room: Gender: M Manager Business Systems: JEOVANNY : 1945 Requested By: DERIK MCMILLAN Order Number: [id number] Reading MD: Measurements Intervals [place] Rate: 94 P: 61 [place]: 56 QRS: -25 QRSD: 91 T: 76 QT: 365 QTc: 457 Interpretive Statements Sinus rhythm Short [place] interval Borderline left axis deviation Minimal ST depression Baseline wander in lead(s) II,III,aVR,aVL,aVF,V1,V6 Please click the below link to view image of tracing.
[2025-01-27 12:13] VITALS: TEMP 97.1
[2025-01-27 12:26] LABS: MEAN PLATELET VOLUME 7.9 FL (7.4-10.4); RED CELL DISTRIBUTION WIDTH 20.6 % (11.5-14.5)
--- NOTE | 2025-01-27 12:41 | RADIOLOGY REPORT ---
CHEST RADIOGRAPH Indication: CP Technique: Single frontal view of the chest was obtained COMPARISON: DI CHEST,SINGLE VIEW on DOS: 10/11/23 FINDINGS: Lines and Tubes: None Lungs: Unchanged subtle opacity in the right upper lobe. Pleura: No effusion. No pneumothorax. Cardiomediastinal contours: Unremarkable Bones: Unremarkable IMPRESSION: No acute disease. Unchanged opacity in the right upper lobe. This may represent scarring.
[2025-01-27 12:50] LABS: CREATININE 1.19 MG/DL (0.60-1.10); PRO BRAIN NATRIURETIC PEPTIDE 1571 PG/ML (0-450); TOTAL CARBON DIOXIDE 23.5 MMOL/L (24-32); eCRCL 50 ML/MIN; eGFR 59 ML/MIN
[2025-01-27 12:58] LABS: BANDS% (MANUAL) 5.0 % (0-10); ELLIPTOCYTES 2+; EOSINOPHILS % (MANUAL) 1.0 % (0-6); GIANT PLATELET FEW; LARGE PLATELETS FEW; LYMPHOCYTES % (MANUAL) 8.0 % (21-51); METAMYLEOCYTES% (MANUAL) 3.0 % (0-0); MONOCYTES % (MANUAL) 10.0 % (2-12); MYELOCYTES % (MANUAL) 1.0 % (0-0); NEUTROPHILS % (MANUAL) 72.0 % (42-75); PLATELET ESTIMATE NORMAL
--- NOTE | 2025-01-27 13:05 | Physician Documentation ---
History of Present Illness ~ Chief Complaint: Shortness of Breath Stated Complaint: SOB Time Seen by MD: 12:06 Primary Medical Doctor: Silvia at [place] Source: patient Mode of Arrival: POV Exam Limitations: no limitations HPI Patient in remission with a history of lung cancer and bladder cancer who presents with mild cough and shortness of breath over the past 4 days. He states the cough really isn't a cough it is more like clearing phlegm in his throat. Occasionally gets some very brief left-sided chest pain but only lasts for a couple of minutes at a time. Quit smoking a few years ago. Was smoking a pack to a pack and a half per day. Smoked for 50-60 years. Has never been told that he has COPD. Does not use inhalers. No known sick contacts. Medication Reconciliation Allergies: Coded Allergies: No Known Allergies (Unverified , 01/10/24) Scheduled Amiodarone HCl (Amiodarone HCl), 2 TAB PO DAILY, (Reported) Anagrelide HCl (Anagrelide HCl), 1 MG PO BID, (Reported) Apixaban (Eliquis), 1 TAB PO Q12H, (Reported) Atorvastatin Calcium (Atorvastatin Calcium), 1 TAB PO DAILY, (Reported) Azithromycin (Zithromax), 1 TAB PO DAILY Carvedilol (Coreg), 1 TAB PO Q12H, (Reported) Cyanocobalamin* (Vitamin B-12*), 2 TAB PO DAILY, (Reported) Empagliflozin (Jardiance), 12.5 MG PO DAILY, (Reported) Ferrous Sulfate (Ferrous Sulfate), 1 TAB PO DAILY, (Reported) Furosemide (Lasix), 1 TAB PO DAILY, (Reported) Levothyroxine Sodium (Synthroid), 1 TAB PO DAILY, (Reported) Magnesium Oxide (Magnesium), 1 CAP PO DAILY, (Reported) Nirmatrelvir/Ritonavir (Paxlovid 300-100 mg Dose Pack), 3 TAB PO BID Omeprazole (Omeprazole), 1 TAB PO DAILY, (Reported) Potassium Chloride* (K-Dur*), 1 TAB PO DAILY, (Reported) Sacubitril/Valsartan (Entresto 24 mg-26 mg Tablet), 1 TAB PO BID, (Reported) Spironolactone (Spironolactone), 0.5 TAB PO DAILY, (Reported) Past Medical History Past Medical History: Atrial Fibrillation, Congestive Heart Failure, Hypertension, Vascular Disease, GERD, Peptic Ulcer Disease, Thyroid (unspecified), *CANCER* Past Surgical History: angioplasty, colectomy, other Other Past Surgical History: Right femoral-distal tibial bypass, cystoscopy Patient History: FH: breast cancer sister Alcohol Use: Rarely Drug Use: none Lives with: Family Lives In: Home Occupation: retired Review of Systems All Other Systems at this time: Reviewed and Negative Physical Exam Vital Signs: Temperature: 97.1, Source: Temporal, Heart Rate: 77, Respiratory Rate: 10, BP: 128/69, Pulse Oximetry: 97, Weight: 77.100 Oxygen Flow Rate: 0 General Appearance: alert Neck: normal inspection Respiratory: lungs clear, normal breath sounds, no respiratory distress Chest: no accessory muscle use Cardiovascular: regular rate, rhythm, no edema Gastrointestinal: non-tender Extremities: normal inspection Skin: normal color, warm/dry Neurologic: oriented x4 Psychiatric: appropriate Progress Results/Orders Results/Orders Orders - DERIK MCMILLAN MD Chest,Single View (01/27/25 12:15) Monitor (01/27/25 12:01) Saline Lock (01/27/25 12:01) Oxygen (01/27/25 12:01) Covid19 Binax Poc Result Entry (01/27/25 12:07) Cult Urine + [address] (01/27/25 14:50) Completed Orders - DERIK MCMILLAN MD Chest,Single View (01/27/25 12:15) Cbc/Diff (01/27/25 12:01) BMP (01/27/25 12:01) PBNP (01/27/25 12:01) Electrocardiogram (01/27/25 12:01) Hs Troponin I W Calculations (01/27/25 12:01) Man Diff (01/27/25 12:13) Hs Troponin I W Calculations (01/27/25 14:06) D-Dimer (01/27/25 13:38) Ua W/Microscopic, Cult If Ind (01/27/25 13:56) Vital Signs 01/27/25 01/27/25 01/27/25 01/27/25 11:56 12:13 12:13 14:25 Temp 97.1 97.1 Pulse 89 77 84 Resp 16 10 10 28 B/P (MAP) 139/95 128/69 (88) 113/51 (71) Pulse Ox 98 97 99 O2 Flow Rate 0 0 01/27/25 14:52 Pulse 84 Resp 18 B/P (MAP) 113/51 Pulse Ox 99 Laboratory Tests Test 01/27/25 12:13 01/27/25 12:15 01/27/25 13:48 01/27/25 13:56 White Blood Count 12.7 H Red Blood Count 3.23 L Hemoglobin 9.4 L Hematocrit 28.2 L Mean Corpuscular Volume 87.3 Mean Corpuscular Hemoglobin 29.3 Mean Corpuscular Hemoglobin Concent 33.5 Red Cell Distribution Width 20.6 H Platelet Count 243 Mean Platelet Volume 7.9 Neutrophils (%) (Auto) 86.2 H Lymphocytes (%) (Auto) 4.9 L Monocytes (%) (Auto) 6.2 Eosinophils (%) (Auto) 1.5 Basophils (%) (Auto) 1.2 H Neutrophils # (Auto) 10.9 H Lymphocytes # (Auto) 0.6 L Monocytes # (Auto) 0.8 Eosinophils # (Auto) 0.2 Basophils # (Auto) 0.2 CBC Comment Differential Total Cells Counted 100 Neutrophils % (Manual) 72.0 Band Neutrophils % 5.0 Lymphocytes % (Manual) 8.0 L Monocytes % (Manual) 10.0 Eosinophils % (Manual) 1.0 Metamyelocytes % 3.0 H Myelocytes % 1.0 H Dohle Bodies 1+ Platelet Estimate Normal Large Platelets Few Giant Platelets Few Red Blood Cell Morphology Perf Basophilic Stippling Tear Drop Cells Few Elliptocytes 2+ Sodium Level 141 Potassium Level 4.5 Chloride Level 107 Carbon Dioxide Level 23.5 L Anion Gap 11 Blood Urea Nitrogen 19 H Creatinine 1.19 H Estimated GFR/1.73 m2 59 BUN/Creatinine Ratio 16.0 Glucose Level 103 Calcium Level 8.7 Troponin I High Sensitivity 8 9 Pro-B-Type Natriuretic Peptide 1571 H Albumin 3.0 L Chemistry Comments SARS-CoV-2 Antigen (Rapid) Negative D-Dimer 0.24 D-Dimer Comment Troponin I High Sens Percent Delta 12 Troponin I Hi Sens Absolute Change 1 Urine Specimen Description Non-specified Urine Color Yellow Urine Clarity Cloudy Urine pH 5.5 Urine Specific [place] 1.020 Urine Protein Trace Urine Glucose (UA) >=1000 H Urine Ketones Negative Urine Occult Blood Small Urine Nitrite Positive H Urine Bilirubin Negative Urine Urobilinogen 0.2 Urine Leukocyte Esterase Small H Urine RBC 20-50 Urine WBC Tntc H Urine WBC Clumps Moderate Urine Squamous Epithelial Cells Few Urine Bacteria 3+ Urine Mucus None seen Urine Culture Indicated Indicated Volume Urine Centrifuged 10 ml Urine Comment Microbiology Date/Time Source Procedure Growth Status 01/27/25 14:50 Urine Nonspecified Urine Culture - Preliminary Culture received. Resulted Medical Decision Making Additional Infomation Patient in with primary complaint of cough and shortness of breath. History of lung cancer with chronic history of smoking. Never been diagnosed with COPD. Workup unremarkable including negative D-dimer, negative troponin x2 and no significant changes on his x-ray. I am going to place him on a Z-Chris. May be a mild exacerbation of COPD or underlying early bacterial infection. Likely viral URI. COVID is negative. Discharging home in good condition. Follow up with PCP. Return here if new or worsening symptoms prior to follow up. Departure Disposition: HOME / SELF CARE / HOMELESS Impression: Primary Impression: Acute upper respiratory infection Condition: Stable Discharge Instructions: Upper Respiratory Infection, Adult Additional Instructions: Follow up with your doctor in 1-2 weeks. Return here if new or worsening symptoms prior to follow up. Referrals: NO PRIMARY CARE PROVIDER (PCP) Prescriptions Azithromycin (Zithromax) 250 Mg Tablet 1 TAB PO DAILY, #6 TAB azithromycin z pack as directed in packaging Prov: DERIK MCMILLAN MD 01/27/25 Education Educated: Patient Educated regarding: diagnosis, treatment, prognosis, need for follow up Signature Scribe Signature: No scribe used Attestation: No scribe used DERIK MCMILLAN MD Jan 27, 2025 13:05
[2025-01-27 14:29] LABS: LEUKOCYTE ESTERASE ,URINE SMALL (Neg); NITRITES, URINE POSITIVE (Neg); OCCULT BLOOD,URINE SMALL (Neg)
[2025-01-27 14:37] LABS: UA COLLECTION TYPE NON-SPECIFIED
[2025-01-27] MEDS ORDERED: AZIT-164 PO (14:46)
[2025-01-27 14:49] LABS: SQUAMOUS EPITHELIAL CELL,UR FEW /LPF (FEW)
[2025-01-27 14:50] LABS: MUCUS STRANDS NONE SEEN /LPF (Neg); WBC CLUMPS,URINE MODERATE /HPF (NEGATIVE)
[2025-01-27 14:52] VITALS: BP 113/51; PULSE 84; RESP 18; O2SAT 99
== END 2025-01-27 14:54 | disposition home or self-care (01) ==
LOC: ER 11:51
DX: J06.9 Acute upper respiratory infection, unspecified (principal); R06.02 Shortness of breath; R07.89 Other chest pain; I11.0 Hypertensive heart disease with heart failure; I50.9 Heart failure, unspecified; I48.91 Unspecified atrial fibrillation; F17.200 Nicotine dependence, unspecified, uncomplicated; Z85.118 Personal history of other malignant neoplasm of bronchus and lung; Z85.51 Personal history of malignant neoplasm of bladder; Z85.850 Personal history of malignant neoplasm of thyroid; Z87.11 Personal history of peptic ulcer disease; Z90.49 Acquired absence of other specified parts of digestive tract; Z20.822 Contact with and (suspected) exposure to COVID-19
CPT/HCPCS: 36415; 71045; 80048; 81001; 83880; 84484; 85007; 85025; 85379; 87077; 87088; 87186; 87811; 93005; 99285